=== PATIENT | male | born 1970 | race Two or more races ===

== ENCOUNTER → 2018-11-02 07:41 | Outpatient (CLI) | payer OTHER | END | disposition home or self-care (01) | LOC: EKG 07:41 | DX: Z01.818 Encounter for other preprocedural examination (principal); K80.20 Calculus of gallbladder without cholecystitis without obstruction ==

== ENCOUNTER 2018-11-18 05:35 | Day surgery (SDC) | payer OTHER ==
[~2018-11-18 05:35] MED LIST: SYNTHROID50 MCG PO
[2018-11-18] MEDS ORDERED: ULTRACET PO (12:42)
[2018-11-18] MEDS ORDERED: NEURONTIN300 MG PO (12:46)
== END 2018-11-18 15:30 | disposition home or self-care (01) ==
LOC: CIR.AMB 05:35
DX: K80.10 Calculus of gallbladder with chronic cholecystitis without obstruction (principal)